=== PATIENT | male | born 1990 | race Caucasian/White ===

== ENCOUNTER 2024-02-25 13:12 | Outpatient (CLI) | payer OTHER, SELFPAY ==
--- NOTE | ~2024-02-25 | XR_ITS ---
CHEST RADIOGRAPH, PA AND LATERAL CLINICAL HISTORY: R06.2 - Wheezing . COMPARISON: None available TECHNIQUE: PA and lateral views of the chest. FINDINGS The cardiomediastinal silhouette is unremarkable. The lungs are clear. No significant peribronchial thickening is appreciated. Visualized osseous structures and soft tissues are unremarkable. IMPRESSION: No focal infiltrate or effusion. Reviewed, dictated and finalized at location A.
== END 2024-02-25 13:13 | disposition home or self-care (01) ==
LOC: MICIMG 13:16
PROVIDERS: PCP Family Medicine; Visit Provider Nurse Practitioner Adult Health
DX: R06.2 Wheezing (principal)
CPT/HCPCS: 71046